=== PATIENT | female | born 1990 | race African-American/Black ===

== ENCOUNTER 2017-06-26 14:43 | Emergency (ER) | payer MEDICAID, OTHER ==
[~2017-06-26] VITALS: Ht 152.4 cm; Wt 59.0 kg
[2017-06-26 14:45] VITALS: BP 133/83; PULSE 80; RESP 18; TEMP 98.9; O2SAT 100
--- NOTE | 2017-06-26 16:05 | PD ---
HPI Chief Complaint: Related Problem Time Seen by Provider: 15:42 Travel History International Travel<30 days: No Contact w/Intl Traveler<30days: No Traveled to known affect area: No History of Present Illness HPI Patient's a 26-year-old female presents emergency department for approximately 15 weeks at the insistence of Dr. Shanks back for IV fluids. Patient has been nauseous in throwing up, she states she has been able to tolerate p.o. fluids. She denies any abdominal pain vaginal bleeding vaginal discharge loss of fluid. From the onset of our encounter the patient has adamantly denying any blood work. Patient states she has a fear of needles. Patient states she just feels like she dehydrated. Patient's call me in collected but uncooperative with exam she states that "I do not need exam I just need IV fluids." PFSH Past Medical History Medical History: Denies Significant Hx ?: : 1 Para: 0 Miscarriage: 0 : 0 Past Surgical History Cholecystectomy: Yes Social History Alcohol Use: No Tobacco Use: No Substance Use: No Allergies-Medications (Allergen,Severity, Reaction): Coded Allergies: penicillin G (Verified Allergy, Severe, 06/26/17) Reported Meds & Prescriptions Reported Meds & Active Scripts Active No Active Prescriptions or Reported Medications Review of Systems Except as stated in HPI: all other systems reviewed are Neg Physical Exam Narrative Patient's refusing physical exam. Data Data Last Documented VS Vital Signs Date Time Temp Pulse Resp B/P (MAP) Pulse Ox O2 Delivery O2 Flow Rate FiO2 06/26/17 14:45 98.9 80 18 133/83 (100) 100 Orders Orders Ed Poc Ultrasound (06/26/17 15:50) [facility] Medical Decision Making Medical Screen Exam Complete: Yes Emergency Medical Condition: Yes Differential Diagnosis Dehydration, ectopic , vaginal bleeding, vaginal discharge, dehydration , electrolyte abnormality. Narrative Course Patient roomed in the emergency department, she is refusing physical examination refusing any blood work refusing any ultrasound. At this time I cannot determine whether the patient needs IV fluids at all, she states she has been tolerating p.o. fluids at home would suggest that the risks of IV fluids probably outweigh the benefits. At this time I asked the patient what I can do for her in she states just start an IV give me my fluid so I can go home. At this time I am disinclined to honor her request without even doing a physical exam on her. She has adamantly refused physical exam in therefore I cannot proceed forward. I have counseled her on the risks of leaving AMA but she would not listen. She then eloped from the emergency department. Diagnosis Primary Impression: Left against medical advice Scripts No Active Prescriptions or Reported Meds Disposition: 07 AGAINST MEDICAL ADVICE Kirk Cabrales MD Jun 26, 2017 16:04
== END 2017-06-26 16:10 | disposition left against medical advice (07) ==
LOC: NEPD 14:43
DX: O21.9 Vomiting of pregnancy, unspecified (principal); Z3A.15 15 weeks gestation of pregnancy
CPT/HCPCS: 99281